=== PATIENT | male | born 1995 | race African-American/Black ===

== ENCOUNTER 2022-08-04 15:28 | Emergency (ER) | payer OTHER, MEDICAID, SELFPAY ==
--- NOTE | ~2022-08-04 | XR_ITS ---
EXAMINATION: XR hand RT min 3V DATE: 08/04/2022 15:39 INDICATION: Glass puncture wound the right hand. Assess for foreign body. TECHNIQUE: Posteroanterior, oblique and lateral views of the right hand were obtained. COMPARISON: None. FINDINGS: Bone alignment is normal. Tiny chronic appearing ossicle with adjacent small corticated donor site at the radial base of the second proximal phalanx as well as mild radial collateral ligament avulsion i njury. No acute fracture. Joint spaces are normal. No erosions or periosteal reaction soft tissues ar e unremarkable. No soft tissue gas or radiopaque foreign bodies. IMPRESSION: 1. No acute osseous abnormality or radiopaque foreign body. 2. 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 Reviewed, dictated and finalized at location A. IMPRESSION: 1. No acute osseous abnormality or radiopaque foreign body. 2. Chronic nonunited small avulsion fracture arising from the radial base of th e second proximal phalanx.
[2022-08-04 16:04] VITALS: BP 156/54; PULSE 68; RESP 18; TEMP 37.3; O2SAT 96
--- NOTE | 2022-08-04 17:22 | ED.GENADULT ---
HPI - General Adult General Chief complaint: Wound/Laceration Stated complaint: R HAND PUNCTURE WOUND FROM GLASS Time Seen by Provider: 08/04/22 17:00 History of Present Illness HPI narrative: Patient is a 26-year-old male who is right-handed here for evaluation of a laceration to the base of his right thumb sustained from a piece of glass earlier today. Patient states he accidentally cut it on a piece of broken glass just prior to arrival. He is unsure of his last tetanus shot. He has full range of motion in his and has no numbness or tingling. Additionally complaining of some chronic left ear pain and muffled hearing. He has seen an ENT specialist for this in the past and was told that it might be due to TMJ. States that there is some pain in his jaw as well, but no fevers, chills, or discharge. Related Data Allergies Allergy/AdvReac Type Severity Reaction Status Date / Time No Known Allergies Allergy Verified 08/04/22 18:26 Review of Systems Review of Systems: Gen: Denies fevers or chills Eyes: Denies eye pain or visual change ENT: Reports left ear and jaw pain and muffled hearing Respiratory: Denies shortness of breath or cough CV: Denies chest pain or palpitations GI: Denies abdominal pain nausea, emesis or diarrhea : denies burning, urgency, frequency or hematuria Musculoskeletal: Denies back pain or muscle pain Neuro: Denies numbness, tingling, weakness or focal weakness Skin: Reports laceration Except as documented, all other systems reviewed and negative Exam Narrative: APPEARANCE: Well appearing, no pain in distress, well-nourished. Head: Normocephalic and atraumatic. EYES: PERRLA/EOMI, conjunctivae clear NOSE: No nasal drainage EARS: Bilateral TMs are clear. No mastoid tenderness. No pain with movement of tragus. Reports pain in left jaw with opening mandible. External ear normal in appearance THROAT: Oropharynx is clear. Mucous membranes are moist. NECK: Supple. No adenopathy, no masses. RESPIRATORY: Airway patent, respirations nonlabored. Clear to auscultation bilaterally, no rales, rhonchi, wheezing. CARDIOVASCULAR: Regular rate and rhythm without murmurs, rubs, or gallops. ABDOMINAL: Normoactive bowel sounds. Soft, nontender, nondistended. No rebound tenderness or guarding. MUSCULOSKELETAL: Extremities are warm and well-perfused. Moves all extremities well. No edema. NEURO: Normal speech. No focal neurologic deficits. SKIN: Patient has a 1/2 cm laceration to the base of his right thumb with no active bleeding, subcutaneous fat visible PSYCHIATRIC: Normal affect/mood. Course Vital Signs Vital signs: Vital Signs Temperature 99.1 F 08/04/22 16:04 Pulse Rate 68 08/04/22 16:04 Respiratory Rate 18 08/04/22 16:04 Blood Pressure 156/54 H 08/04/22 16:04 Pulse Oximetry 96 08/04/22 16:04 Oxygen Delivery Room Air 08/04/22 16:04 Temperature 99.1 F 08/04/22 16:04 Pulse Rate 72 08/04/22 19:26 Respiratory Rate 20 08/04/22 19:26 Blood Pressure 138/87 08/04/22 19:26 Pulse Oximetry 98 08/04/22 19:26 Oxygen Delivery Room Air 08/04/22 16:04 Procedures Laceration Laceration 1: Date: 08/04/22 Time: 19:26 Site: other (R wrist) Size (cm): 0.5 Description: linear Depth: simple, single layer Pre-repair: wound explored and irrigated ====== Skin Level ====== Skin layer closed with: steri strips Number of sutures: 3 Technique: simple, interrupted ====== Subcutaneous Layer ====== ====== Muscle Layer ====== ====== Tendon Layer ====== Medical Decision Making [facility] Narrative Medical decision making narrative: 26-year-old male here for evaluation of a laceration to his wrist sustained accidentally from a piece of glass. Here he is nontoxic-appearing, the wound is 0.5 cm with no active bleeding. His tetanus is not up-to-date, it was updated in the ED. The wound was irrigated extensivel
[2022-08-04] MEDS: TETANUS,DIPHTHERIA,AC PERTUSSIS ADULT (0.5 ML) BOOSTRIX IM (18:37)
[2022-08-04 19:26] VITALS: BP 138/87; PULSE 72; RESP 20; O2SAT 98
== END 2022-08-04 19:27 | disposition home or self-care (01) ==
LOC: ANHED 17:41
PROVIDERS: Emergency Provider Emergency Medicine; PCP Family Medicine
DX: S61.011A Laceration without foreign body of right thumb without damage to nail, initial encounter (principal); Z23 Encounter for immunization; W25.XXXA Contact with sharp glass, initial encounter
CPT/HCPCS: 73130; 90471; 90715; 99283